=== PATIENT | male | born 1975 | race Caucasian/White ===

== ENCOUNTER → 2016-12-03 | Outpatient (CLI) | payer OTHER | LOC: GMAJ 06:47 | PROVIDERS: ATTEND Family Medicine | DX: Z30.2 Encounter for sterilization (principal) ==

== ENCOUNTER 2019-12-12 05:37 | Day surgery (SDC) | payer OTHER ==
--- NOTE | 2019-12-06 10:33 | RAD ---
EXAM DESCRIPTION: Chest,2 Views CLINICAL HISTORY: 44 years Male, surg 12/12/19 COMPARISON: None. TECHNIQUE: 2 view radiograph of the chest. IMPRESSION: Normal size cardiac silhouette. Nonspecific bilateral perihilar interstitial prominence which can be seen with early pulmonary edema versus infection such as bronchitis. No hyperinflation. No lobar consolidation. No pleural effusion or pneumothorax. Thoracic spondylosis Electronically signed by: Joe Laird MD 12/06/2019 10:31 AM [facility]
[2019-12-12] MEDS ORDERED: SODIUM CHL 0.9% 100ML MINI-BAG 100 ML IVPB ONE (05:58)
[2019-12-12] MEDS ORDERED: LACTATED RINGERS 1,000 ML ONE ×2 (05:59→09:37)
[2019-12-12] MEDS ORDERED: ceFAZolin SODIUM 1 GM VIAL ONE ×2 (05:59→06:36)
[2019-12-12] MEDS ORDERED: BUPIVACAINE 0.25% INJ 30 ML VIAL INJ ONE ×2 (06:36→08:28)
[2019-12-12] MEDS ORDERED: LIDOCAINE 1% 10 ML VIAL INJ ONE ×3 (06:36→08:30)
[2019-12-12] MEDS ORDERED: VANCOMYCIN HCL INJ 1,000 MG VIAL IVPB ONE ×2 (06:36→08:33)
[2019-12-12] MEDS ORDERED: ONDANSETRON INJ 4 MG/2 ML VIAL ONE (07:00)
[2019-12-12] MEDS ORDERED: PROPOFOL 200 MG/20 ML VIAL IV ONE (07:00)
[2019-12-12] MEDS ORDERED: MIDAZOLAM INJ 2 MG/2 ML VIAL ONE (08:00)
[2019-12-12] MEDS ORDERED: fentaNYL CITRATE INJ 50 MCG/ML AMP ONE (08:01)
[2019-12-12] MEDS ORDERED: ceFAZolin SODIUM 1 GM VIAL IRRIG ONE (08:32)
[2019-12-13 02:56] VITALS: BP 144/100; TEMP 97.9; O2SAT 98
--- NOTE | 2019-12-14 08:35 | OP ---
DATE OF PROCEDURE: 12/12/19 PREOPERATIVE DIAGNOSIS: 1. Tendon laceration in zone 5 of the middle finger. POSTOPERATIVE DIAGNOSIS: 1. Tendon laceration in zone 5 of the middle finger. PROCEDURE: 1. Repair of extensor tendon. SURGEON: Horacio Webster MD. DIE BARBER: Jluis Collins CST, SA-C. ANESTHESIA: General anesthesia. COMPLICATIONS: None. FINDINGS: Laceration of the third extensor tendon in zone 5. INDICATION: Neal had an injury that he sustained about a week prior to surgery. He had hit his hand and did not seek treatment at that time. He ultimately presented to Dr. Pena and Dr. Pena sent him to me. Upon inspection, he was unable to fully extend the middle digit. Because of that and the location of the laceration, I diagnosed an extensor tendon laceration. We talked about the risks, benefits and alternatives of operative therapy and he gave informed consent for repair. PROCEDURE: The patient was brought to the Operating Room and placed in supine position. General anesthesia was induced and the patient's arm was sterilely prepped and draped. Following prepping and draping, the laceration that he had was extended distally. The tendon ends both proximally and distally were identified and were debrided. Following debridement, each tendon end had a locking suture with 2 arms placed. The suture arms were reapproximated simultaneously. A running suture was then placed to help decrease the size and freshen the tendon repair. Following that, the finger was extended and flexed and there was no undue tension at the repair site and there was no gapping. The wound was very thoroughly irrigated and closed with Nylon suture. Sterile dressings were placed. The patient was placed in an extension splint, awoken from anesthesia and taken to Recovery. POSTOPERATIVE PLAN: He will followup with us in 2 days. We are going to begin some gentle active range of motion at the MP joints upon followup. We will splint him with the PIP and DIP free. #[id number] [facility]
== END 2019-12-12 12:25 | disposition home or self-care (01) ==
LOC: AMB 05:37
PROVIDERS: ATTEND Orthopaedic Surgery
DX: S66.323A Laceration of extensor muscle, fascia and tendon of left middle finger at wrist and hand level, initial encounter (principal); F17.200 Nicotine dependence, unspecified, uncomplicated
CPT/HCPCS: 01810; 26418; 36415; 71046; 80048; 80307; 85025; 87070; 93005; J0690; J2250; J2405; J3010; J3370; J3490; J7050; J7120

== ENCOUNTER → 2020-06-05 | Outpatient (CLI) | payer OTHER ==
--- NOTE | 2020-06-05 12:26 | RAD ---
EXAM DESCRIPTION: Knee,Right Complete: CR/DR/XR. CLINICAL HISTORY: PAIN IN RIGHT KNEE COMPARISON: X-ray of the pelvis on the same visit. TECHNIQUE: 4 VIEWS.. AP standing, tunnel standing, lateral standing, and patellofemoral sunrise view right knee. FINDINGS: Periarticular bone density loss. Minimal narrowing medial compartment with marginal spurs. Tibial spine spurs. Minimal suprapatellar effusion. Narrowing of the lateral patellofemoral joint with marginal spurs. Small spur superior and inferior patella. No fracture. No abnormal radiodense objects in the soft tissues or joint spaces. IMPRESSION: Minimal narrowing medial compartment in the lateral aspect of the patellofemoral joint. Marginal spurs. Juxta articular bone density loss. No acute bony or joint margin abnormality. Electronically signed by: Jluis Garces MD 06/05/2020 12:24 PM CDT
--- NOTE | 2020-06-05 12:27 | RAD ---
EXAM DESCRIPTION: Pelvis: CR/DR/XR CLINICAL HISTORY: HIP PAIN RIGHT COMPARISON: None Available. TECHNIQUE: One view AP Pelvis FINDINGS: No fracture dislocation. Normal bone density. Minimal hypertrophic changes bilateral superior acetabula with subchondral sclerosis. Joint spaces are symmetric bilaterally. No abnormal radiodense objects in the soft tissues or joint spaces. IMPRESSION: Early arthrosis bilateral hip joints. Hip joint spaces are symmetric. Electronically signed by: Jluis Garces MD 06/05/2020 12:25 PM CDT
== END ==
LOC: RAD 08:17
PROVIDERS: ATTEND Orthopaedic Surgery
DX: M16.0 Bilateral primary osteoarthritis of hip (principal); M25.761 Osteophyte, right knee; M25.861 Other specified joint disorders, right knee; M85.861 Other specified disorders of bone density and structure, right lower leg